=== PATIENT | male | born 1995 | race Caucasian/White ===

== ENCOUNTER 2024-09-09 13:56 | Emergency (ER) | payer OTHER, SELFPAY ==
[2024-09-09 14:02] VITALS: BP 135/76; PULSE 74; RESP 18; TEMP 36.5; O2SAT 97; BMI 27.8
--- NOTE | 2024-09-09 14:30 | ED.EAR ---
HPI - Ear Problem <Macie Cesar PA-C - Last Filed: 09/09/24 15:27> General Chief complaint: Ear Stated complaint: loss of hearing in rt ear, [id number] Time Seen by Provider: 09/09/24 14:28 Source: patient Mode of arrival: Ambulatory History of Present Illness HPI Narrative: 29-year-old male presents with right-sided ear fullness. He states that his hearing is slightly diminished. It all began after a couple of flights during the holidays on August 26, 2024. He had several short legs at altitude visiting his family. He is denying any fever, chills, he states that he recently had cold symptoms with those did resolve. He reports no vertiginous symptoms no prior hearing loss or injury. No history of any ear infections when he was a child. He did try some hydrogen peroxide in the ear canal which did ?bubble and he did get some wax out? but the symptoms still remain. He states hot shower seemed to help. 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 He reports no tinnitus. 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 He does wear hearing protection insertional and an over the ear cut protection while at work. He did use Sudafed last month when he had cold symptoms but has not tried any since then. No other nasal preparations. No history of nosebleeds. His primary care is at [facility]. Apparently he has an otolaryngology appointment in October. All other systems are reviewed and are negative. Related Data Allergies Allergy/AdvReac Type Severity Reaction Status Date / Time No Known Drug Allergies Allergy Verified 09/09/24 14:05 Review of Systems <Macie Cesar PA-C - Last Filed: 09/09/24 15:27> Review of Systems Narrative: All other systems reviewed and are negative. Patient History <Macie Cesar PA-C - Last Filed: 09/09/24 15:27> Social History Smoking Status: Never smoker Smoking Status: Never smoker Exam <Macie Cesar PA-C - Last Filed: 09/09/24 15:27> Initial Vital Signs Initial Vital Signs: Vital Signs Temperature 97.7 F 09/09/24 14:02 Pulse Rate 74 09/09/24 14:02 Respiratory Rate 18 09/09/24 14:02 Blood Pressure 135/76 09/09/24 14:02 Pulse Oximetry 97 09/09/24 14:02 Oxygen Delivery Method Room Air 09/09/24 14:02 Vital signs reviewed and are normal. Const General: cooperative, healthy appearing, comfortable, well developed, well groomed and No acute distress [facility] Head: normal to inspection and normocephalic Ears: external ears normal, TM normal on the left, EAC's normal, mastoids normal, no periauricular adenopathy and TM abnormal dull and not mobile (No movement with Valsalva. No air leak.) on the right; not retracted Nose: external nose normal, mucous membranes and turbinates abnormal (Hypertrophic turbinates right greater than left, obstruction on right), No nasal discharge and No nasal polyp Face and sinus: normal facial exam, sinuses nontender and face symmetric Mouth: oral mucosae normal, lip normal, tongue normal, oropharynx normal and No muffled voice Teeth and gingiva: dentition normal and gingiva normal Throat: posterior oropharynx normal, tonsils normal and uvula midline Eyes General: Yes appearance normal, both eyes and all related structures Eyelids: eyelids normal Neck Neck: normal visual inspection, full ROM, no meningeal signs, trachea midline and supple Resp Effort & Inspection: normal respiratory effort and able to speak in complete sentences Auscultation: clear to auscultation bilaterally, no rales, no rhonchi and no wheezes Skin General: no rashes or lesions noted <Tisha Jackson DO - Last Filed: 09/10/24 07:35> Initial Vital Signs Initial Vital Signs: Vital Signs Temperature 97.7 F 09/09/24 14:02 Pulse Rate 74 09/09/24 14:02 Respiratory Rate 18 09/09/24 14:02 Blood Pressure 135/76 09/09/24 14:02 Pulse Oximetry 97 09/09/24 14:02 Oxygen Delivery Method Room Air 09/09/24 14:02 Course <Macie Cesar PA-C - Last Filed: 09/09/24 15:27> Vital Signs Vital signs: Vital Signs - 8 hr 09/09/24 14:02 Temperature 97.7 F Pulse Rate 74 Respiratory Rate 18 Blood Pressure 135/76 Pulse Oximetry 97 Oxygen Delivery Method Room Air Reviewed and are normal. <Tisha Jackson DO - Last Filed: 09/10/24 07:35> Vital Signs Vital signs: Vital Signs - 8 hr 09/09/24 14:02 Temperature 97.7 F Pulse Rate 74 Respiratory Rate 18 Blood Pressure 135/76 Pulse Oximetry 97 Oxygen Delivery Method Room Air Medical Decision Making <Macie Cesar PA-C - Last Filed: 09/09/24 15:27> MDM Narrative Medical decision making narrative: No clinical findings on examination to suggest an acute bacterial infection. He is normal vital signs. His hearing is slightly muffled on the right but his tympanic membrane has no motility with Valsalva. It was dull appearing but bony landmarks were seen. External auditory canal is normal. He was also found to have hypertrophic turbinates the right side greater than left and slightly nasal sounding. He states that he is always sounded like this so I recommended that he try a nasal steroid such as fluticasone twice a day for the next couple of weeks, use some saline nasal spray or Neti pot in the interim, continue with the pseudoephedrine this week, make sure to hydrate as this can dry you out. 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 Discussed healthcare maintenance overall. We also reviewed anatomy at length with a posterior that I Monica regarding the eustachian tubes, and the general anatomy of the nasal passages. He has no history of any GERD I think his recent travel certainly did contribute, we also discussed red flag warning signs and to seek medical attention if anything changes or worsens or he develops any new worrisome symptoms. At no time did he experience any vertiginous symptoms, no vision changes, no focal neurologic findings on examination. Discharge Plan Departure Patient Disposition: Home Clinical Impression: Acute dysfunction of right eustachian tube, Hypertrophy of inferior nasal turbinate Instructions: DI for Eustachian Tube Dysfunction-Adult Activity Restrictions/Additional Instructions: I would like you to follow up with Otolaryngology you stated that you may have an appointment in October I think this is wonderful. In the meantime I would like you to try [id number] Flonase AKA fluticasone 1 spray each nostril twice daily follow the packaging instructions as it was technique sensitive. You may also use regular saline nasal spray throughout the day for a moisturizer. I would like you to continue pseudoephedrine which is available behind the pharmacy counter for the next week. This will over dry you so please make sure you hydrate. Right now your right eardrum has no motility and I do believe it is a pressure issue and incomplete drainage at your Eustachian tube. There is no findings on examination to suggest a wax impaction or infection. Your turbinates within your nasal tissues are also quite large and swollen this could be chronic and it makes me think that you have some other swollen tissues that are impacting ears Eustachian tube so the Flonase should help shrink these over time you should see some gradual improvement over the next couple of weeks. Please do not hesitate to seek medical attention if anything changes or worsens, you experience any pain, any vertiginous symptoms or any other new worrisome symptoms. Gentle Valsalva throughout the day or chewing gum might also help. Referrals: Provider,Savi DÍAZ [Primary Care Provider] - Stand Alone Forms: Patient Portal/API/Survey ED Sign-out <Tisha Jackson DO - Last Filed: 09/10/24 07:35> Cosign ED Attending Shaji Attestation: I was immediately available in the department for consultation.
[2024-09-09 15:29] VITALS: BP 157/74; PULSE 65; RESP 14; O2SAT 98
--- NOTE | 2024-09-09 15:29 | PC.NURSE ---
patient assessed by provider
== END 2024-09-09 15:31 | disposition home or self-care (01) ==
PROVIDERS: Emergency Provider Physician Assistant Medical
DX: H69.91 Unspecified Eustachian tube disorder, right ear (principal); J34.3 Hypertrophy of nasal turbinates
CPT/HCPCS: 99281